=== PATIENT | male | born 1985 | race Caucasian/White ===

== ENCOUNTER 2017-06-21 17:40 | Emergency (ER) | payer MEDICAID ==
[2017-06-21 17:48] VITALS: RESP 16; TEMP 98.6
--- NOTE | 2017-06-21 17:50 | EDPHY ---
H & P Stated Complaint: Bit by black&brown spider on R ankle this am Time Seen by Provider: 06/21/17 17:49 Source: Patient Exam Limitations: No limitations - Personal History Current Tetanus Diphtheria and Acellular Pertussis (TDAP): Yes - Medical/Surgical History Hx Asthma: No Hx Chronic Respiratory Disease: No Hx Diabetes: No Hx Cardiac Disease: No Hx Renal Disease: No Hx Cirrhosis: No Hx Alcoholism: No Hx HIV/AIDS: No Hx Splenectomy or Spleen Trauma: No Other PMH: FOOT SURGERY - Social History Smoking Status: Never smoked Constitutional: Initial Vital Signs Temperature (C) 37 C 06/21/17 17:43 Heart Rate 87 06/21/17 17:43 Respiratory Rate 16 06/21/17 17:43 Blood Pressure 163/99 H 06/21/17 17:43 O2 Sat (%) 99 06/21/17 17:43 O2 Delivery Mode Room Air Allergies/Adverse Reactions: No Known Allergies Allergy (Verified 06/21/17 17:43) Home Medications: Medication Instructions Recorded predniSONE 40 mg PO DAILY #10 tab 06/21/17 Medical Decision Making ED Course/Re-evaluation: CHIEF COMPLAINT: Allergic reaction to spider bite. HISTORY OF PRESENT ILLNESS: The patient is a 31-year-old male presenting an allergic reaction to a spider bite. The patient was camping and saw a brown/ black spider near him. He has a bite tito on his right foot. He developed diffuse hives and feels difficulty swallowing. No chest pain or shortness of breath. No throat swelling or tongue swelling. REVIEW OF SYSTEMS: A 10 point review of systems was performed and is negative with the exception of the elements mentioned in the history of present illness. PHYSICAL EXAM: HR, BP, O2 Sat, RR. Temp noted General Appearance: Alert, well hydrated, appropriate, and non-toxic appearing. Eyes: Pupils equal, round, reactive to light and accommodation, EOMI, no trauma , injection bilaterally. Nose: Atraumatic, no rhinorrhea, clear. Throat: No swelling of the uvula or posterior oropharynx.There is no erythema or exudates, no lesions, normal tonsils, mucus membranes moist. Neck: Supple, 2+ carotid upstroke, nontender, no lymphadenopathy. Respiratory: No retractions, no distress, no wheezes, and no accessory muscle use. Lungs are clear to auscultation bilaterally. Cardiovascular: Regular rate and rhythm, no murmurs, rubs, or gallops. Bilateral carotid, radial, dorsalis pedis, and posterior tibial pulses intact. Good capillary refill all extremities. Gastrointestinal: Abdomen is soft, nontender, non-distended, no masses, no rebound, no guarding, no peritoneal signs. Musculoskeletal: Normal active ROM of all extremities, atraumatic. Neurological: Alert, appropriate, and interactive. The patient has normal DTRs and non-focal cranial nerves, motor, sensory, and cerebellar exam. Skin: Scattered urticaria. Past medical history: Denies. Past surgical history: Foot surgery. Family history: Noncontributory. Social history: Denies illicit drug use. DIFFERENTIAL DIAGNOSIS: The differential diagnosis included but was not limited to angioedema, anaphylaxis, anaphylactoid reaction, urticarial reaction , and other infectious causes for skin rash. MEDICAL DECISION MAKING: The patient presents with an acute allergic reaction to a spider bite. The patient has a visible bite tito on the interior aspect of his right foot. He has scattered urticaria to his extremities. Plan to treat allergic reaction with 60mg Prednisone, 50mg Benadryl, 40mg Pepcid. - Data Points Medications Given: Discontinued Medications Diphenhydramine HCl (Benadryl) 50 mg PO EDNOW ONE Stop: 06/21/17 18:03 Last Admin: 06/21/17 18:12 Dose: 50 mg Famotidine (Pepcid) 40 mg PO EDNOW ONE Stop: 06/21/17 18:03 Last Admin: 06/21/17 18:13 Dose: 40 mg Prednisone (Prednisone) 60 mg PO EDNOW ONE Stop: 06/21/17 18:03 Last Admin: 06/21/17 18:13 Dose: 60 mg Departure - Departure Disposition: Home, Routine, Self-Care Clinical Impression: Urticaria Spider bite Qualifiers: Encounter type: initial encounter Injury intent: accidental or unintentional Qualified Code(s): T63.301A - Toxic effect of unspecified spider venom, accidental (unintentional), initial encounter Condition: Good Instructions: Urticaria (ED), Insect Bite or Sting (ED) Additional Instructions: Take Prednisone as directed. I recommend buying over the counter Benadryl to help with hives and itchiness. Benadryl may cause drowsiness so you may want to take it before bed time. Return to the emergency department if you develop throat swelling, tongue swelling, difficulty breathing, or worsening concerns. You have been referred to the educational interpreter primary care physician, follow up as needed. Referrals: Dayan Brown MD [Medical Doctor] - As per Instructions (Primary care physician referral) Prescriptions: predniSONE 40 mg PO DAILY #10 tab Report Scribed for: Christopher Barlow Report Scribed by: Yaz Barbosa Date of Report: 06/21/17 Time of Report: 18:06
[2017-06-21] MEDS ORDERED: diphenhydrAMINE 25 MG CAP PO ONE ×2 (18:02→18:16)
[2017-06-21] MEDS ORDERED: predniSONE 20 MG TAB PO ONE (18:02)
[2017-06-21] MEDS ORDERED: FAMOTIDINE 20 MG TAB PO ONE (18:02)
[2017-06-21 18:33] VITALS: BP 125/78; PULSE 81; O2SAT 98
== END 2017-06-21 18:35 | disposition home or self-care (01) ==
DX: T63.391A Toxic effect of venom of other spider, accidental (unintentional), initial encounter (principal); L50.9 Urticaria, unspecified

== ENCOUNTER 2017-12-17 10:35 | Emergency (ER) | payer OTHER, MEDICAID ==
[2017-12-17] MEDS ORDERED: TDAP ADULT 0.5 ML INJ (BOOSTRIX) IM ONE (10:45)
--- NOTE | 2017-12-17 11:00 | EDPHY ---
General - History Smoking Status: Never smoked Time Seen by Provider: 12/17/17 10:42 Narrative: CHIEF COMPLAINT: Wrist laceration HISTORY OF PRESENT ILLNESS: Patient presents with complaints of left wrist laceration. This happened just prior to arrival while at work. 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 He noted moderate bleeding from the site. He applied pressure and proceeded to [facility]. They evaluated him and sent him to our facility for higher level of care. He has had no difficulty bending or straightening the fingers but does have painful movement of the left wrist. No numbness or tingling. No weakness. Questionable Tdap status. No other associated complaints or modifying factors. Right-hand dominant. TIME OF INJURY: Less than 1 hr ago TETANUS STATUS: Uncertain MEDICAL/SURGICAL/SOCIAL HISTORY: Uncomplicated. Lives here independently. REVIEW OF SYSTEMS: Ten systems reviewed and are negative unless otherwise noted in the HPI EXAMINATION General Appearance: Alert, no distress Head: normocephalic, atraumatic Cardiovascular: Symmetric radial pulses 2+. Brisk cap refill in the fingers left hand. Neurological: A&O, sensory symmetric in the radial, ulnar and median distributions. Interossei strength is symmetric. Skin: Warm and dry, no rash. 4 cm laceration overlying the left wrist, volar aspect overlying the distal ulna. No pulsatile bleeding. No exposure of the flexor tendons. Extremities: Tenderness over the area of wrist laceration. There is no tenderness of the palm or fingers. There is full flexion of the fingers including superficialis and profundus. Full flexion of the wrist without difficulty or deficit. Extension is intact symmetrically. DIFFERENTIAL DIAGNOSES: Including but not limited to complex laceration, laceration with tendon injury, laceration with foreign body, laceration with arterial injury MDM: 10:59 a.m. Complex laceration over the volar aspect of the left wrist overlying the distal ulna. There is no pulsatile bleeding. I do not appreciate any injury to the deep structures. He is fully neuro intact with full flexion of the wrist and fingers. I have anesthetize the area. We will proceed with irrigation and closure. I have ordered an x-ray to rule out foreign body. 11:30 a.m. X-ray does reveal foreign body but not overlying the area of injury. This is overlying the thumb. I discussed this with the patient and reviewed the x-ray with him. He does not recall any injury to this thumb but will follow up outpatient for further examination of this. This is uncomplicated with no pain or limitation of his range of motion. 12:20 p.m. Complex Laceration has been repaired without difficulty. He remains neuro intact postprocedure. He is currently being placed in a splint isolate movement of the wrist. He has strict wound care precautions and daily wound care instructions. He will be discharged with prescription of Keflex for 7 days as well as a short course of pain medication. I would like him to ice and elevate the extremity. He will follow up immediately with his [facility] upon discharge from here. ED precautions discussed and discharged home in stable condition. He will need to return here or his worker' s compensation Clinic in 10 days for suture removal. PROCEDURE: Laceration repair Consent: Verbal Location: Left wrist, volar Length of repair: 4 cm Complexity: Complex Layer involvement: 2 layer Anesthesia: Local. 1% lidocaine with epinephrine. 10 mL Irrigation: Extensive Debridement: None Procedure description: Following good anesthesia, the wound was copiously irrigated. Wound bed was explored with a sterile glove, and there is no foreign body noted. No injury to the deep structures or flexor tendons. Wound borders were approximated well with good hemostasis. Tolerated well without complication. Suture/Staple material: Subcutaneous layer: 4-0 Vicryl, 3 simple interrupted sutures . Cutaneous layer: 5-0 Ethilon, 5 horizontal mattress sutures Wound care: Routine as discussed Suture/Staple removal: 10 Days SUPERVISION: This patient was independently evaluated without direct involvement of or examination by the attending physician. ED Precautions: Worsening pain. Erythema, edema, cyanosis, pallor, paresthesia or anesthesia. (Chandana Wong) Medical Decision Making: I did not see this patient while he was in the emergency department. However his care was discussed with the PA while the patient was in the department. I agree with treatment plan and management (Jagdeep Orozco) - Diagnostics Imaging Results: Imaging Impressions Wrist X-Ray 12/17/17 11:00 Impression: Small sliver of metal along the radial aspect of the first metacarpal distally, otherwise negative. - Objective Vital Signs: Initial Vital Signs Temperature (C) 36.4 C 12/17/17 10:37 Heart Rate 68 12/17/17 10:37 Respiratory Rate 18 12/17/17 10:37 Blood Pressure 122/76 H 12/17/17 10:37 O2 Sat (%) 98 12/17/17 10:37 O2 Delivery Mode Room Air Allergies/Adverse Reactions: No Known Allergies Allergy (Verified 06/21/17 17:43) Home Medications: Medication Instructions Recorded Cephalexin [Keflex (*)] 500 mg PO QID #28 cap 12/17/17 Ranitidine HCl 12/17/17 Xanax 12/17/17 traMADol [Ultram 50 mg (*)] 50 mg PO Q4 PRN #7 tab 12/17/17 Medications Given: Discontinued Medications Diphtheria/Tetanus/Acell Pertussis (Boostrix) 0.5 ml IM .ONCE ONE Stop: 12/17/17 10:46 Last Admin: 12/17/17 10:56 Dose: 0.5 ml Departure - Departure Disposition: Home, Routine, Self-Care Clinical Impression: Foreign body (FB) in soft tissue Laceration of wrist, left, complicated Qualifiers: Encounter type: initial encounter Qualified Code(s): S61.512A - Laceration without foreign body of left wrist, initial encounter Condition: Good Instructions: Care For Your Stitches (ED), Laceration (ED) Additional Instructions: 1. Wrist splint as applied here until re-evaluated and sutures removed 2. Daily wound care as discussed with thin layer of bacitracin once daily for 3 days 3. Antibiotics to completion as prescribed 4. ED precautions as discussed 5. Follow up with worker's compensation Clinic. I recommend a wound recheck in 48 hr Referrals: Physician,Emergency DeptMD [Medical Doctor] - As per Instructions (48 hr wound check. Return to emergency department in 10 days for suture removal) NONE *PRIMARY CARE P,. [Primary Care Provider] - As per Instructions Memo Marshall MD [Medical Doctor] - As per Instructions Stand Alone Forms: Work Comp Follow Up Prescriptions: Cephalexin [Keflex (*)] 500 mg PO QID #28 cap traMADol [Ultram 50 mg (*)] 50 mg PO Q4 PRN #7 tab PRN Reason: Pain, Mild
[2017-12-17 12:41] VITALS: BP 138/80
== END 2017-12-17 12:39 | disposition home or self-care (01) ==
PROC: 0HQEXZZ Repair Left Lower Arm Skin, External Approach (ICD-10-PCS; principal; 2017-12-17)
DX: S61.512A Laceration without foreign body of left wrist, initial encounter (principal); Z23 Encounter for immunization; W26.0XXA Contact with knife, initial encounter; Y99.8 Other external cause status; Y93.89 Activity, other specified
CPT/HCPCS: L3925